=== PATIENT | male | born 1940 | race Caucasian/White ===

== ENCOUNTER → 2018-09-03 13:33 | Outpatient (REF) | payer MEDICARE, OTHER, SELFPAY | LOC: LAB 13:33 | PROVIDERS: Visit Provider Otolaryngology Facial Plastic Surgery | DX: J34.0 Abscess, furuncle and carbuncle of nose (principal) | CPT/HCPCS: 87070; 87077; 87147; 87186 ==

== ENCOUNTER → 2018-10-14 13:26 | Outpatient (REF) | payer MEDICARE, OTHER, SELFPAY | LOC: LAB 13:26 | PROVIDERS: Visit Provider Otolaryngology Facial Plastic Surgery | DX: J34.0 Abscess, furuncle and carbuncle of nose (principal) | CPT/HCPCS: 87070 ==